=== PATIENT | male | born 1975 | race Two or more races ===

== ENCOUNTER 2020-08-05 03:01 | Emergency (ER) | payer SELFPAY ==
[~2020-08-05] VITALS: Ht 175.3 cm; Wt 85.0 kg
[2020-08-05 03:11] VITALS: BP 166/95
== END 2020-08-05 03:49 | disposition home or self-care (01) ==
LOC: ED 03:30
DX: F10.120 Alcohol abuse with intoxication, uncomplicated (principal); I10 Essential (primary) hypertension; Y90.9 Presence of alcohol in blood, level not specified
CPT/HCPCS: 99283